=== PATIENT | male | born 1990 | race African-American/Black ===

== ENCOUNTER 2024-02-20 09:12 | Emergency (ER) | payer OTHER, MEDICAID ==
[~2024-02-20] VITALS: Ht 190.5 cm; Wt 102.6 kg
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
[2024-02-20 09:50] VITALS: BP 130/82; PULSE 72; RESP 16; TEMP 98.8; O2SAT 98
--- NOTE | 2024-02-20 10:17 | DVH ---
INDICATION: trauma COMPARISON: None TECHNIQUE: 1 views of the lumbar spine were obtained. FINDINGS: The lumbar vertebral alignment is normal. The intervertebral disc spaces are well-maintained. No significant facet arthropathy is noted. No acute fracture, vertebral compression deformity or aggressive osseous lesions. The paravertebral soft tissues are grossly unremarkable. IMPRESSION: No acute fracture.
[2024-02-20] MEDS ORDERED: CYCL-837 PO (10:25)
[2024-02-20] MEDS ORDERED: LIDO5DIS21 TOP (10:25)
[2024-02-20] MEDS ORDERED: NAPR-746 PO (10:25)
== END 2024-02-20 10:32 | disposition home or self-care (01) ==
LOC: ER 09:12
DX: M79.18 Myalgia, other site (principal); M54.50 Low back pain, unspecified; V89.2XXA Person injured in unspecified motor-vehicle accident, traffic, initial encounter; Y93.I9 Activity, other involving external motion; Y92.488 Other paved roadways as the place of occurrence of the external cause; Y99.8 Other external cause status
CPT/HCPCS: 72100